=== PATIENT | female | born 1990 | race Caucasian/White ===

== ENCOUNTER 2019-02-01 11:54 | Inpatient (IN) | payer OTHER, MEDICAID ==
[~2019-02-01] VITALS: Ht 165.1 cm; Wt 97.1 kg
[~2019-02-01 11:54] MED LIST: ESOM40CA PO; PREN1TAB49 PO
[2019-02-01] MEDS ORDERED: DEXT 5%/LR + PITOCIN 20UNITS/L 1,000 ML IV SCH (19:08)
[2019-02-01] MEDS ORDERED: METHYLERGONOVINE MALEATE 0.2 MG/ML IM PRN (19:15)
[2019-02-01] MEDS ORDERED: BUTORPHANOL TARTRATE 2 MG/ML VIAL IV PRN (19:15)
[2019-02-01] MEDS ORDERED: CARBOPROST TROMETHAMINE 250 MCG/ML AMPUL IM PRN (19:15)
[2019-02-01] MEDS: LACTATED RINGERS 1,000 ML IV SCH (20:00)
[2019-02-01 20:26] LABS: CLARITY URINE CLEAR (CLEAR); COLOR URINE YELLOW (YELLOW); KETONES URINE NEGATIVE (NEGATIVE); LEUKOCYTE ESTERASE URINE NEGATIVE (NEGATIVE); NITRITE URINE NEGATIVE (NEGATIVE); OCCULT BLOOD URINE NEGATIVE (NEGATIVE); PROTEIN URINE NEGATIVE (NEGATIVE); SPECIFIC GRAVITY URINE 1.014 (1.005-1.030); UROBILINOGEN URINE 0.2 E.U./dL (0.2-1.0)
[2019-02-01 20:31] LABS: BASOPHILS % 0.3 % (0.0-2.0); EOSINOPHILS % 0.2 % (0.0-5.0); HEMATOCRIT. 39.4 % (36.0-48.0); HEMOGLOBIN. 13.4 g/dL (12.0-16.0); LYMPHOCYTES % 19.6 % (20.0-50.0); MEAN CORPUSCULAR HEMOGLOBIN 30.3 pg (28.0-32.0); MEAN CORPUSCULAR VOLUME 88.9 fL (81.0-99.0); MEAN PLATELET VOLUME 8.2 fl (7.4-10.4); MONOCYTES % 6.1 % (2.0-8.0); NEUTROPHILS % 73.8 % (40.0-76.0); PLATELET 322 x1000/uL (130-400); RED BLOOD CELL COUNT 4.43 mill/uL (4.2-5.4); RED CELL DISTRIBUTION WIDTH 13.9 % (11.6-14.6)
[2019-02-01 20:32] LABS: CHLORIDE 105 mEq/L (98-107)
[2019-02-01 20:34] LABS: PARTIAL THROMBOPLASTIN TIME 30.1 sec (23.4-31.0); PROTHROMBIN TIME 9.7 sec (9.1-11.1)
[2019-02-01 20:45] LABS: *AMPHETAMINES SCREEN URINE NEGATIVE (NEGATIVE); *BARBITURATES SCREEN URINE NEGATIVE (NEGATIVE); *BENZODIAZEPINES SCREEN URINE NEGATIVE (NEGATIVE); *COCAINE SCREEN URINE NEGATIVE (NEGATIVE); CANNABINOID URINE SCREEN NEGATIVE (NEGATIVE); METHADONE URINE SCREEN NEGATIVE (NEGATIVE); OPIATES URINE SCREEN NEGATIVE (NEGATIVE); PHENCYCLIDINE URINE SCREEN NEGATIVE (NEGATIVE)
[2019-02-01 21:09] LABS: HEPATITIS B SURFACE ANTIGEN NEGATIVE
[2019-02-01] MEDS: MISOPROSTOL 100MCG TABLET VG SCH (22:24)
[2019-02-02] MEDS: MISOPROSTOL 100MCG TABLET VG SCH ×5 (02:25→18:20)
[2019-02-02] MEDS: LACTATED RINGERS 1,000 ML IV SCH ×3 (03:06→18:19)
[2019-02-02 07:04] LABS: CHLORIDE 107 mEq/L (98-107)
[2019-02-02] MEDS: MISOPROSTOL 200MCG TABLET PO SCH (22:28)
[2019-02-02] MEDS: BUTORPHANOL TARTRATE 2 MG/ML VIAL IM PRN (22:38)
[2019-02-03] MEDS ORDERED: LACTATED RINGERS 1,000 ML IV SCH (01:45)
[2019-02-03] MEDS: MISOPROSTOL 200MCG TABLET PO SCH (03:07)
[2019-02-03] MEDS ORDERED: MISOPROSTOL 100MCG TABLET VG PRN (07:00)
[2019-02-03] MEDS: BUTORPHANOL TARTRATE 2 MG/ML VIAL IM PRN (09:20)
[2019-02-03] MEDS ORDERED: DEXT 5%/LR + PITOCIN 20UNITS/L 1,000 ML IV SCH (12:11)
[2019-02-03] MEDS ORDERED: RHO(D) IMMUNE GLOBULIN 300 MCG/SYR IM PRN (12:15)
[2019-02-03] MEDS ORDERED: METHYLERGONOVINE MALEATE 0.2 MG/ML IM PRN (12:15)
[2019-02-03] MEDS ORDERED: IBUPROFEN 400MG TABLET PO PRN (12:15)
[2019-02-03] MEDS ORDERED: IBUPROFEN 800MG TABLET PO PRN (12:15)
[2019-02-03 13:00] VITALS: BP 98/65
[2019-02-03 20:00] VITALS: BP 107/68
[2019-02-04] VITALS: BP 105/62
[2019-02-04 04:00] VITALS: BP 119/67
[2019-02-04 07:28] LABS: BASOPHILS % 0.3 % (0.0-2.0); EOSINOPHILS % 1.1 % (0.0-5.0); HEMATOCRIT. 36.2 % (36.0-48.0); HEMOGLOBIN. 12.2 g/dL (12.0-16.0); LYMPHOCYTES % 23.4 % (20.0-50.0); MEAN CORPUSCULAR HEMOGLOBIN 30.2 pg (28.0-32.0); MEAN CORPUSCULAR VOLUME 89.2 fL (81.0-99.0); MEAN PLATELET VOLUME 8.3 fl (7.4-10.4); MONOCYTES % 7.7 % (2.0-8.0); NEUTROPHILS % 67.5 % (40.0-76.0); PLATELET 253 x1000/uL (130-400); RED BLOOD CELL COUNT 4.05 mill/uL (4.2-5.4); RED CELL DISTRIBUTION WIDTH 13.9 % (11.6-14.6)
[2019-02-04 08:00] VITALS: BP 102/58
[2019-02-04 08:10] LABS: T4 FREE 1.05 ng/dL (0.76-1.46)
[2019-02-04 10:54] VITALS: BP 110/58
== END 2019-02-04 11:08 | disposition home or self-care (01) | DRG 560 ==
LOC: OBSVTOIN 11:54 → 8 EST LDRP 11:54 → 6EST 02-03 13:09
PROVIDERS: ADMIT Obstetrics & Gynecology; ATTEND Obstetrics & Gynecology
PROC: 10E0XZZ Delivery of Products of Conception, External Approach (ICD-10-PCS; principal; 2019-02-03)
DX: O36.4XX0 Maternal care for intrauterine death, not applicable or unspecified (principal); Z37.1 Single stillbirth; Z3A.23 23 weeks gestation of pregnancy
CPT/HCPCS: 36415; 76805; 80305; 83036; 84439; 84443; 84481; 86592; 86703; 86762; 86850; 86900; 87340; 88300; 88307; 99281; G0378; J0595; J2590; J7120

== ENCOUNTER 2019-06-15 12:23 | Emergency (ER) | payer MEDICAID ==
[~2019-06-15] VITALS: Ht 165.1 cm; Wt 100.0 kg
[2019-06-15 17:38] LABS: BASOPHILS % 0.7 % (0.0-2.0); EOSINOPHILS % 0.7 % (0.0-5.0); HEMATOCRIT. 39.2 % (36.0-48.0); HEMOGLOBIN. 13.4 g/dL (12.0-16.0); MEAN CORPUSCULAR HEMOGLOBIN 30.2 pg (28.0-32.0); MEAN CORPUSCULAR VOLUME 88.4 fL (81.0-99.0); MEAN PLATELET VOLUME 7.6 fl (7.4-10.4); MONOCYTES % 7.6 % (2.0-8.0); PLATELET 291 x1000/uL (130-400); RED BLOOD CELL COUNT 4.44 mill/uL (4.2-5.4); RED CELL DISTRIBUTION WIDTH 12.6 % (11.6-14.6)
[2019-06-15 19:02] LABS: CLARITY URINE CLEAR (CLEAR); COLOR URINE YELLOW (YELLOW); KETONES URINE NEGATIVE (NEGATIVE); LEUKOCYTE ESTERASE URINE NEGATIVE (NEGATIVE); NITRITE URINE NEGATIVE (NEGATIVE); OCCULT BLOOD URINE TRACE (NEGATIVE); PROTEIN URINE NEGATIVE (NEGATIVE); SPECIFIC GRAVITY URINE 1.024 (1.005-1.030); UROBILINOGEN URINE 0.2 E.U./dL (0.2-1.0)
[2019-06-15 20:38] VITALS: BP 125/77
== END 2019-06-15 20:40 | disposition home or self-care (01) ==
LOC: ER 12:23
DX: O20.0 Threatened abortion (principal); O23.41 Unspecified infection of urinary tract in pregnancy, first trimester; O26.891 Other specified pregnancy related conditions, first trimester; Z3A.01 Less than 8 weeks gestation of pregnancy
CPT/HCPCS: 36415; 76801; 84702; 86900; 99284